=== PATIENT | male | born 1980 | race Caucasian/White ===

== ENCOUNTER 2019-05-27 11:43 | Emergency (ER) | payer BC ==
[2019-05-27] MEDS ORDERED: Sodium Chloride 0.9% 10 ML Syringe FLUSH PRN (11:59)
[2019-05-27] MEDS ORDERED: Sodium Chloride 0.9% 1,000 ML IV SCH (12:00)
--- NOTE | 2019-05-27 12:09 | EDM.PDOC ---
ED HPI GENERAL MEDICAL PROBLEM - General Chief Complaint: General Stated Complaint: Dizziness, nausea Time Seen by Provider: 05/27/19 11:50 - History of Present Illness INITIAL COMMENTS - FREE TEXT/NARRATIVE: 23 patient is a 38-year-old gentleman who works at [employer] will simply states that he was at work became warm hot felt fatigued and dizzy and nauseous patient was brought in for evaluation patient also has history of insulin-dependent dependent diabetes has not been checking his blood sugars but has continue using insulin. 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) Associated Symptoms: Reports: Diaphoresis, Nausea/Vomiting, Weakness Left Foot Pain Score (Numeric/FACES): 4 - Related Data Allergies Allergy/AdvReac Type Severity Reaction Status Date / Time bupropion [From Wellbutrin] Allergy Mild Other Verified 05/27/19 13:12 ibuprofen Allergy Nausea Verified 05/27/19 13:12 methylphenidate Allergy Disorientat Verified 05/27/19 13:12 [From Ritalin] ion Home Meds: Home Meds atorvaSTATin [Lipitor] 10 mg PO DAILY 08/07/18 [History] glipiZIDE [Glipizide Xl] 1 tab PO BEDTIME 08/07/18 [History] glipiZIDE [Glipizide Xl] 2 tab PO DAILY 08/07/18 [History] Acetaminophen [Acetaminophen Extra Strength] 1,000 mg PO Q4HR 05/27/19 [History] Acetaminophen with Codeine [Tylenol with Codeine #3 Tablet] 1 tab PO BID PRN [History] Cholecalciferol (Vitamin D3) [Vitamin D] 50,000 units PO ASDIRECTED 05/27/19 [ History] Gabapentin [Neurontin] 300 mg PO BID 05/27/19 [History] Insulin Glarg,Human.Rec.Analog [Lantus] 15 units SUBCUT BEDTIME 05/27/19 [ History] Insulin Lispro [Humalog] See Protocol 05/27/19 [History] Lisinopril 20 mg PO DAILY 05/27/19 [History] SitaGLIPtin [Januvia] 100 mg PO DAILY 05/27/19 [History] SitaGLIPtin [Januvia] 100 mg PO DAILY 05/27/19 [History] metFORMIN [Glucophage XR] 1,000 mg PO BID 05/27/19 [History] traMADol HCl [Tramadol HCl] 50 mg PO BID 05/27/19 [History] ED ROS GENERAL - Review of Systems Review Of Systems: See Below Constitutional: Reports: Weakness, Diaphoresis HEENT: Reports: No Symptoms, Vertigo, Other (Initially felt dizzy and sat down states that he almost fell from the chair) Respiratory: Reports: No Symptoms Endocrine: Reports: Other (History of diabetes) GI/Abdominal: Reports: Nausea : Reports: No Symptoms Musculoskeletal: Reports: Other (Usually has left foot pain) Skin: Reports: No Symptoms Neurological: Reports: No Symptoms, Other (Neuropathy) ED EXAM, GENERAL - Physical Exam Exam: See Below Exam Limited By: No Limitations General Appearance: Alert, WD/WN, No Apparent Distress Nose: Normal Inspection, Normal Mucosa, No Blood Throat/Mouth: Normal Inspection, Normal Lips, Normal Teeth, Normal Gums, Normal Oropharynx, Normal Voice, No Airway Compromise Neck: Normal Inspection, Supple, Non-Tender, Full Range of Motion Respiratory/Chest: No Respiratory Distress, Lungs Clear, Normal Breath Sounds, No Accessory Muscle Use, Chest Non-Tender Cardiovascular: Normal Peripheral Pulses, Regular Rate, Rhythm, No Edema, No Gallop, No JVD, No Murmur, No Rub GI/Abdominal: Normal Bowel Sounds, Soft, Tender (Male) Exam: Deferred Rectal (Males) Exam: Deferred Extremities: No Pedal Edema, Pedal Edema, Other (Left great toe amputation with first metatarsal amputation partial also patient had fifth metatarsal partial removal secondary to osteomyelitis) Neurological: Alert, Oriented, CN II-XII Intact, Normal Cognition Course - Vital Signs Last Recorded V/S: Last Vital Signs Temp 98.1 F 05/27/19 11:59 Pulse 77 05/27/19 11:59 Resp 16 05/27/19 11:59 BP 108/77 05/27/19 11:59 Pulse Ox 97 05/27/19 11:59 - Orders/Labs/Meds Orders: Active Orders 24 hr Category Date Time Status CBC WITH AUTO DIFF [HEME] Stat Lab 05/27/19 11:55 Ordered COMPREHENSIVE METABOLIC PN,CMP [CHEM] Stat Lab 05/27/19 11:58 Ordered GLYCOSYLATED HEMOGLOBIN (HA1C) [REF] Stat Lab 05/27/19 11:57 Ordered Sodium Chloride 0.9% [Normal Saline] 1,000 ml Med 05/27/19 12:00 Ordered IV ASDIRECTED Sodium Chloride 0.9% [Saline Flush] Med 05/27/19 11:59 Ordered 10 ml FLUSH ASDIRECTED PRN Saline Lock Insert [OM.PC] Stat Oth 05/27/19 11:59 Ordered Medication Orders Sodium Chloride (Normal Saline) 1,000 mls @ 999 mls/hr IV ASDIRECTED CARLIE Sodium Chloride (Saline Flush) 10 ml FLUSH ASDIRECTED PRN PRN Reason: Keep Vein Open Meds: Medications Generic Name Dose Route Start Last Admin Trade Name Freq PRN Reason Stop Dose Admin Sodium Chloride 1,000 mls @ 999 mls/hr 05/27/19 12:00 Normal Saline IV ASDIRECTED CARLIE Sodium Chloride 10 ml 05/27/19 11:59 Saline Flush FLUSH ASDIRECTED PRN Keep Vein Open Departure - Departure Time of Disposition: 13:47 Disposition: Home, Self-Care 01 Condition: Fair Clinical Impression: Dehydration determined by examination, Hyperkalemia, Nausea, Hyperglycemia - Discharge Information *PRESCRIPTION DRUG MONITORING PROGRAM REVIEWED*: No *COPY OF PRESCRIPTION DRUG MONITORING REPORT IN PATIENT PHILIPPE: No Instructions: Nausea, Adult, Dehydration, Adult, [id number] Care Plan Goals: Patient will be sent home he is to start oral hydration with Gatorade sugar- free water flavored water which should have his potassium checked again in 3 days he could do this in the clinic is to stay home tomorrow may return to work in 2 days if feeling well he can return to the ER if any questions follow-up with primary - My Orders Last 24 Hours: My Active Orders 05/27/19 11:55 CBC WITH AUTO DIFF [HEME] Stat 05/27/19 11:57 GLYCOSYLATED HEMOGLOBIN (HA1C) [REF] Stat 05/27/19 11:58 COMPREHENSIVE METABOLIC PN,CMP [CHEM] Stat 05/27/19 11:59 Sodium Chloride 0.9% [Saline Flush] 10 ml FLUSH ASDIRECTED PRN Saline Lock Insert [OM.PC] Stat 05/27/19 12:00 Sodium Chloride 0.9% [Normal Saline] 1,000 ml IV ASDIRECTED - Assessment/Plan Last 24 Hours: My Active Orders 05/27/19 11:55 CBC WITH AUTO DIFF [HEME] Stat 05/27/19 11:57 GLYCOSYLATED HEMOGLOBIN (HA1C) [REF] Stat 05/27/19 11:58 COMPREHENSIVE METABOLIC PN,CMP [CHEM] Stat 05/27/19 11:59 Sodium Chloride 0.9% [Saline Flush] 10 ml FLUSH ASDIRECTED PRN Saline Lock Insert [OM.PC] Stat 05/27/19 12:00 Sodium Chloride 0.9% [Normal Saline] 1,000 ml IV ASDIRECTED
[2019-05-27 12:26] LABS: HEMOGLOBIN A1C 7.6 % (4.3-5.7)
[2019-05-27] MEDS ORDERED: Promethazine 12.5 MG in Sodium Chloride 0.9% 100 ML IV ONE ×2 (12:31→12:33)
[2019-05-27] MEDS ORDERED: Ondansetron 4 MG/2 ML SDV IVPUSH ONE (12:38)
[2019-05-27] MEDS ORDERED: Meclizine 25 MG Tab PO ONE (13:12)
== END 2019-05-27 14:10 | disposition home or self-care (01) ==
LOC: LL.ED 11:43
DX: E86.0 Dehydration (principal); E87.5 Hyperkalemia; R11.0 Nausea; R73.9 Hyperglycemia, unspecified
CPT/HCPCS: 36415; 80053; 83036; 85025; 96361; 96374; 99284; A9270; J2405; J7030

== ENCOUNTER 2021-10-25 02:04 | Emergency (ER) | payer MEDICAID ==
[2021-10-25] MEDS ORDERED: Sodium Chloride 0.9% 1,000 ML IV ONE (02:36)
[2021-10-25] MEDS ORDERED: Piperacillin/Tazobactam 4.5 GM in Sodium Chloride 0.9% 100 ML IV ONE (03:00)
--- NOTE | 2021-10-25 03:02 | EDM.PDOC ---
ED HPI GENERAL MEDICAL PROBLEM - General Chief Complaint: General Stated Complaint: foot infection Time Seen by Provider: 10/25/21 02:25 Source of Information: Reports: Patient History Limitations: Reports: No Limitations - History of Present Illness INITIAL COMMENTS - FREE TEXT/NARRATIVE: Patient is employed by [email or web address] and is brought in [facility] for left foot pain with concern for " blood poisoning". Patient is an insulin dependent diabetic, has had several surgeries with all toes amputated on the left foot and states he has been doctoring for 3 weeks for a new foot infection on the left foot. He states he bought new boots for work and they rubbed his left foot wrong creating blisters on the left foot laterally and on the dorsal area. He was seen by podiatry, blisters were debrided and he was started on doxycycline. He complained of increased drainage from the lateral wound so was seen at podiatry on 10/10/2021 and was changed to clindamycin three times a day. 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 He states his blood sugars are running a little " high" 250-300 over the last day and has had shooting pains from his heel up his leg. This concerned him for " blood poisoning" and the pain became severe at work so asked to be brought in for evaluation. Not putting anything topically on it. never had an xrays of this. Has increased his novolog by 1-2 units with meals over the last day and still takes lantus in the evening but did not take it today. Did feel chilled, took tylenol in the last four hours. No streaking up the leg. 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 Left Foot Pain Score (Numeric/FACES): 10 - Related Data Allergies Allergy/AdvReac Type Severity Reaction Status Date / Time bupropion [From Wellbutrin] Allergy Mild Other Verified 10/25/21 02:10 ibuprofen Allergy Nausea Verified 10/25/21 02:10 methylphenidate Allergy Disorientat Verified 10/25/21 02:10 [From Ritalin] ion Home Meds: Home Meds atorvaSTATin [Lipitor] 10 mg PO DAILY 08/07/18 [History] Acetaminophen [Acetaminophen Extra Strength] 1,000 mg PO Q4HR 05/27/19 [History] Gabapentin [Neurontin] 300 mg PO BID 05/27/19 [History] Insulin Glarg,Human.Rec.Analog [Lantus] 15 units SUBCUT BEDTIME 05/27/19 [History] metFORMIN [Glucophage XR] 1,000 mg PO BID 05/27/19 [History] Clindamycin HCl 300 mg PO TID 10/25/21 [History] Insulin Aspart [Novolog Flexpen] See Protocol SQ TID 10/25/21 [History] Omeprazole 20 mg PO DAILY 10/25/21 [History] Past Medical History HEENT History: Reports: Impaired Vision Cardiovascular History: Reports: Hypertension Respiratory History: Reports: Bronchitis, Recurrent Musculoskeletal History: Reports: Amputation Other Musculoskeletal History: left great toe Neurological History: Reports: Migraines Psychiatric History: Reports: ADD, ADHD, Bipolar Other Psychiatric History: ADD,ADHS, BIPOLAR DX at 6 years of age quit medications at 22 years of age Endocrine/Metabolic History: Reports: Diabetes, Type II - Past Surgical History Musculoskeletal Surgical History: Reports: Amputation (left foot all toes, multiple surgeries) Social & Family History - Family History Family Medical History: Unobtainable - Caffeine Use Caffeine Use: Reports: Energy Drinks, Soda Other Caffeine Use: soda-2 (2liters). energy drinks-2 - Recreational Drug Use Recreational Drug Use: No Drug Use in Last 12 Months: No ED ROS GENERAL - Review of Systems Review Of Systems: See Below Constitutional: Reports: Chills. Denies: Weakness, Fatigue HEENT: Denies: Rhinitis, Throat Pain, Throat Swelling Respiratory: Reports: No Symptoms. Denies: Shortness of Breath, Cough Cardiovascular: Reports: No Symptoms. Denies: Chest Pain, Dyspnea on Exertion GI/Abdominal: Denies: Abdominal Pain, Diarrhea, Nausea, Vomiting Musculoskeletal: Reports: Foot Pain (left when walking with radiation to the upper leg) Skin: Reports: Wound, Other (open sores on the dorsum of the left foot and latearl left foot) Neurological: Reports: No Symptoms ED EXAM, GENERAL - Physical Exam Exam: See Below Exam Limited By: No Limitations General Appearance: Alert, WD/WN, No Apparent Distress Eye Exam: Bilateral Eye: EOMI, Normal Inspection, PERRL Ears: Hearing Grossly Normal Nose: Normal Inspection Throat/Mouth: Normal Inspection, Normal Lips, Normal Oropharynx, Normal Voice, Other (mild dry mucous membranes) Neck: Normal Inspection Respiratory/Chest: No Respiratory Distress, Lungs Clear, Normal Breath Sounds, No Accessory Muscle Use, Chest Non-Tender Cardiovascular: Normal Peripheral Pulses, No Edema (mild dependent brawny edema bilateral lower legs to mid menjivar), No Murmur, Tachycardia GI/Abdominal: Normal Bowel Sounds. No: Rigid, Rebound Extremities: Other (difficult to palpate dorsalis pedis and posterior tibialis pulse, foot is not cold or pale. ) Neurological: Alert, Oriented Skin Exam: Wound/Incision (near full thickness3 cm diameter area on the dorsum opf the foot with dry wound. full thickness with concern of bony involvement >8 cm lesion left lateral foot with granualation tissue, serous drainage large surrounding erythema, peeling skin. ) Lymphatic: Other (no lymphangetic streaking,) Course - Vital Signs Last Recorded V/S: Last Vital Signs Temp 37.9 C 10/25/21 02:05 Pulse 112 H 10/25/21 02:05 Resp 20 10/25/21 02:05 BP 159/137 H 10/25/21 02:05 Pulse Ox 98 10/25/21 02:05 - Orders/Labs/Meds Orders: Active Orders 24 hr Category Date Time Status Foot Comp Min 3V Lt [CR] Stat Exams 10/25/21 02:39 Ordered CULTURE BLOOD [BC] Stat Lab 10/25/21 02:17 Ordered CULTURE BLOOD [BC] Stat Lab 10/25/21 02:17 Ordered Blood Culture x2 Reflex Set [OM.PC] Stat Oth 10/25/21 02:16 Ordered Labs: Laboratory Tests 10/25/21 10/25/21 10/25/21 Range/Units 02:28 02:28 02:28 WBC 14.0 H (4.0-10.2) K/uL RBC 4.08 L (4.33-5.41) M/uL Hgb 11.9 L D (13.1-16.8) g/dL Hct 34.4 L (39.0-49.0) % MCV 84.3 (84.0-98.0) fL MCH 29.2 (28.2-33.3) pg MCHC 34.6 (31.7-36.0) g/dL RDW 12.0 (11.2-14.1) % Plt Count 396 H D (150-350) K/uL Neut % (Auto) 83.8 H (45.0-80.0) % Lymph % (Auto) 7.8 L (10.0-50.0) % [place] % (Auto) 7.0 (2.0-14.0) % Eos % (Auto) 1.2 (0.0-5.0) % Baso % (Auto) 0.2 (0.0-2.0) % Neut # (Auto) 11.77 H (1.40-7.00) K/uL Lymph # (Auto) 1.09 (0.50-3.50) K/uL [place] # (Auto) 0.98 (0.00-1.00) K/uL Eos # (Auto) 0.17 (0.00-0.50) K/uL Baso # (Auto) 0.03 (0.00-0.20) K/uL ESR (0-15) mm/hr Sodium 131 L (136-145) mmol/L Potassium 3.6 D (3.5-5.1) mmol/L Chloride 97 L (98-107) mmol/L Carbon Dioxide 19.2 L (21.0-32.0) mmol/L Anion Gap 18.4 H (7-15) meq/L BUN 11 (7-18) mg/dL Creatinine 1.13 (0.51-1.17) mg/dL Est Cr Clr Drug Dosing 105.62 mL/min Estimated GFR (MDRD) > 60 mL/min Glucose 378 H (70-99) mg/dL Lactic Acid 0.7 (0.4-2.0) mmol/L Calcium 8.7 (8.5-10.1) mg/dL Total Bilirubin 0.7 (0.2-1.0) mg/dL AST 16 (15-37) U/L ALT 22 (12-78) U/L Alkaline Phosphatase 196 H (46-116) IU/L C-Reactive Protein 33.6 H (<=0.9) mg/dL Total Protein 6.3 L (6.4-8.2) g/dL Albumin 1.8 L (3.4-5.0) g/dL 10/25/21 Range/Units 02:28 WBC (4.0-10.2) K/uL RBC (4.33-5.41) M/uL Hgb (13.1-16.8) g/dL Hct (39.0-49.0) % MCV (84.0-98.0) fL MCH (28.2-33.3) pg MCHC (31.7-36.0) g/dL RDW (11.2-14.1) % Plt Count (150-350) K/uL Neut % (Auto) (45.0-80.0) % Lymph % (Auto) (10.0-50.0) % [place] % (Auto) (2.0-14.0) % Eos % (Auto) (0.0-5.0) % Baso % (Auto) (0.0-2.0) % Neut # (Auto) (1.40-7.00) K/uL Lymph # (Auto) (0.50-3.50) K/uL [place] # (Auto) (0.00-1.00) K/uL Eos # (Auto) (0.00-0.50) K/uL Baso # (Auto) (0.00-0.20) K/uL ESR 115 H (0-15) mm/hr Sodium (136-145) mmol/L Potassium (3.5-5.1) mmol/L Chloride (98-107) mmol/L Carbon Dioxide (21.0-32.0) mmol/L Anion Gap (7-15) meq/L BUN (7-18) mg/dL Creatinine (0.51-1.17) mg/dL Est Cr Clr Drug Dosing mL/min Estimated GFR (MDRD) mL/min Glucose (70-99) mg/dL Lactic Acid (0.4-2.0) mmol/L Calcium (8.5-10.1) mg/dL Total Bilirubin (0.2-1.0) mg/dL AST (15-37) U/L ALT (12-78) U/L Alkaline Phosphatase (46-116) IU/L C-Reactive Protein (<=0.9) mg/dL Total Protein (6.4-8.2) g/dL Albumin (3.4-5.0) g/dL Meds: Medications Discontinued Medications Generic Name Dose Route Start Last Admin Trade Name Radhika PRN Reason Stop Dose Admin Sodium Chloride 1,000 mls @ 999 mls/hr 10/25/21 02:36 10/25/21 02:36 Normal Saline IV 10/25/21 03:36 999 mls/hr .BOLUS ONE Administration Piperacillin Sod/Tazobactam 100 mls @ 200 mls/hr 10/25/21 03:00 10/25/21 03:03 Sod 4.5 gm/ Sodium Chloride IV 10/25/21 03:29 200 mls/hr ONETIME ONE Administration - Radiology Interpretation Free Text/Narrative:: discussed left foot x-ray with radiology, amputations are stable, possible increase in bone destruction lateral foot. No gas noted. Possible change with chronic osteomyelitis. See official report - Re-Assessments/Exams Free Text/Narrative Re-Assessment/Exam: Check labs, give IV fluids due to hyperglycemia history and iv zosyn 4.5 grams. check x-ray WBC elevated, normal lactic, elevated crp and sed rate consistent with chronic infection, not septic. xray with possible worsening chronic changes. Patient was sleping soundly and arousable to voice. Discussed need to follow up with podiatry in one day, possibly get mri and discuss surgical intervention for this nonhealing ulcer. Discussed need to take his Lantus daily and to have tighter blood glucose control with sliding scale in order to help with healing. Patient voices understanding. Asks for pain medication to " finish his shift" at [employer]. Advised that he is not allowed to work on narcotics. Has no pain unless he walks on it. Offered crutches, declines. Will have him continue his doxycyline, give him tonight and tomorrow off and have further restrictions, medications, orders for this ulcer from podiatry Departure - Departure Time of Disposition: 03:36 Disposition: Home, Self-Care 01 Condition: Fair Clinical Impression: Hyperglycemia due to type 1 diabetes mellitus, Non compliance w medication regimen, Diabetic foot ulcer, Cellulitis - Discharge Information *PRESCRIPTION DRUG MONITORING PROGRAM REVIEWED*: Not Applicable *COPY OF PRESCRIPTION DRUG MONITORING REPORT IN PATIENT PHILIPPE: Not Applicable Instructions: Osteomyelitis, Adult, Cellulitis, Adult, Hyperglycemia, [id number] Referrals: Mathew Aleman PA [Primary Care Provider] - Forms: ED Department Discharge, ED Return to Work/School Form Additional Instructions: Testing today revealed a WBC of 14, sed rate of 115, crp of 33. Your blood glucose is high at 348. You have increasing bony destruction of the left foot consistent with probable chronic osteomyelitis. Keep your appointment tomorrow with podiatry, MRI and probable surgery are recommended for this nonhealing chronic ulcer. It is important that you take your diabetes medications ( Lantus) every day and that you have tighter control of your blood glucose sliding scale in order to have wound healing and good surgical outcomes. You were given a dose of zosyn in the ED. Continue your clindamycin three times a day. Keep a wound dressing on and change daily or when it becomes soaked Sepsis Event Note (ED) - Evaluation Sepsis Screening Result: No Definite Risk - Focused Exam Vital Signs: Vital Signs Temp Pulse Resp BP Pulse Ox 10/25/21 02:05 37.9 C 112 H 20 159/137 H 98 - My Orders Last 24 Hours: My Active Orders 10/25/21 02:16 Blood Culture x2 Reflex Set [OM.PC] Stat 10/25/21 02:17 CULTURE BLOOD [BC] Stat CULTURE BLOOD [BC] Stat 10/25/21 02:39 Foot Comp Min 3V Lt [CR] Stat - Assessment/Plan Last 24 Hours: My Active Orders 10/25/21 02:16 Blood Culture x2 Reflex Set [OM.PC] Stat 10/25/21 02:17 CULTURE BLOOD [BC] Stat CULTURE BLOOD [BC] Stat 10/25/21 02:39 Foot Comp Min 3V Lt [CR] Stat
[2021-10-25 03:11] LABS: CHLORIDE,CL 97 mmol/L (98-107); SODIUM,NA 131 mmol/L (136-145)
[2021-10-25 03:12] LABS: ANION GAP 18.4 meq/L (7-15)
== END 2021-10-25 04:05 | disposition home or self-care (01) ==
LOC: LL.ED 02:04
DX: E10.621 Type 1 diabetes mellitus with foot ulcer (principal); L97.429 Non-pressure chronic ulcer of left heel and midfoot with unspecified severity; L03.116 Cellulitis of left lower limb; I10 Essential (primary) hypertension; Z88.8 Allergy status to other drugs, medicaments and biological substances; Z79.899 Other long term (current) drug therapy; Z91.19 Patient's noncompliance with other medical treatment and regimen
CPT/HCPCS: 36415; 73630-LT; 80053; 83605; 85025; 85652; 86140; 87040; 96365; 99283-25; 99284; J2543; J7030

== ENCOUNTER 2023-07-14 17:25 | Emergency (ER) | payer MEDICAID ==
[2023-07-14] MEDS ORDERED: Sodium Chloride 0.9% 1,000 ML IV ONE (18:10)
[2023-07-14 18:17] LABS: BASOPHILS ABSOLUTE AUTO 0.05 K/uL (0.00-0.20); BASOPHILS PERCENT AUTO 0.4 % (0.0-2.0); EOSINOPHILS ABSOLUTE AUTO 0.18 K/uL (0.00-0.50); EOSINOPHILS PERCENT AUTO 1.3 % (0.0-5.0); HEMATOCRIT 40.5 % (39.0-49.0); HEMOGLOBIN 14.4 g/dL (13.1-16.8); LYMPHOCYTES ABSOLUTE AUTO 1.95 K/uL (0.50-3.50); LYMPHOCYTES PERCENT AUTO 14.1 % (10.0-50.0); MEAN CORPUSCULAR HEMOGLOBIN 29.6 pg (28.2-33.3); MEAN CORPUSCULAR HGB CONC 35.6 g/dL (31.7-36.0); MEAN CORPUSCULAR VOLUME 83.3 fL (84.0-98.0); MONOCYTES ABSOLUTE AUTO 1.05 K/uL (0.00-1.00); MONOCYTES PERCENT AUTO 7.6 % (2.0-14.0); NEUTROPHILS ABSOLUTE AUTO 10.62 K/uL (1.40-7.00); NEUTROPHILS PERCENT AUTO 76.6 % (45.0-80.0); PLATELET COUNT,PLT 330 K/uL (150-350); RED BLOOD CELL COUNT 4.86 M/uL (4.33-5.41); RED CELL DISTRIBUTION WIDTH 12.6 % (11.2-14.1); WHITE BLOOD CELL COUNT,WBC 13.9 K/uL (4.0-10.2)
[2023-07-14] MEDS ORDERED: cefTRIAXone 2 GM in Sodium Chloride 0.9% 100 ML IV ONE (18:29)
[2023-07-14 18:33] LABS: INR 0.9; PROTHROMBIN TIME 9.3 SEC (9.0-11.1)
[2023-07-14 18:40] LABS: ALANINE AMINOTRANSFERASE,ALT 16 U/L (12-78); ALBUMIN 2.7 g/dL (3.4-5.0); ALKALINE PHOSPHATASE 125 IU/L (46-116); ASPARTATE AMNIOTRANSFERASE,AST 13 U/L (15-37); BILIRUBIN TOTAL 0.5 mg/dL (0.2-1.0); BLOOD UREA NITROGEN,BUN 22 mg/dL (7-18); CALCIUM 8.3 mg/dL (8.5-10.1); CARBON DIOXIDE,CO2 22.4 mmol/L (21.0-32.0); CHLORIDE,CL 95 mmol/L (98-107); CREATININE 1.57 mg/dL (0.51-1.17); GLUCOSE RANDOM 380 mg/dL (70-99); POTASSIUM,K 3.9 mmol/L (3.5-5.1); PROTEIN TOTAL,TP 6.1 g/dL (6.4-8.2); SODIUM,NA 128 mmol/L (136-145)
[2023-07-14 18:41] LABS: ANION GAP 14.5 meq/L (7-15); ESTIMATED GFR 56 mL/min (>=60)
[2023-07-14 18:42] LABS: LACTIC ACID 2.4 mmol/L (0.4-2.0)
[2023-07-14] MEDS ORDERED: Glucagon,Human Recombinant 1 MG Vial IM PRN ×2 (19:05→19:21)
[2023-07-14] MEDS ORDERED: 50% Dextrose in Water 50 ML Syringe IVPUSH PRN ×2 (19:05→19:21)
[2023-07-14] MEDS ORDERED: Insulin Lispro 100 Units/ML 3 ML Vial SUBCUT ONE (19:21)
[2023-07-14] MEDS ORDERED: Carvedilol 12.5 MG Tab PO ONE (19:36)
[2023-07-14 19:41] LABS: AMPHETAMINES SCREEN, URINE NEGATIVE (NEGATIVE); BARBITURATE SCREEN,URINE NEGATIVE (NEGATIVE); BENZODIAZEPINES SCREEN,URINE NEGATIVE (NEGATIVE); COCAINE METABOLITES,URINE NEGATIVE (NEGATIVE); EDDP,URINE SCREEN NEGATIVE (NEGATIVE); METHAMPHETAMINES SCREEN, URINE NEGATIVE (NEGATIVE); TCA SCREEN,URINE NEGATIVE (NEGATIVE); THC SCREEN,URINE 50 NG/ML NEGATIVE (NEGATIVE)
[2023-07-14 19:42] LABS: BUPRENORPHINE SCREEN,URINE NEGATIVE (NEGATIVE); OXYCODONE SCREEN,URINE NEGATIVE (NEGATIVE)
[2023-07-14 19:44] LABS: APPEARANCE,URINE CLEAR; BILIRUBIN,URINE NEGATIVE (NEGATIVE); COLOR,URINE YELLOW; GLUCOSE,URINE 500 mg/dL (NEGATIVE); KETONES,URINE NEGATIVE (NEGATIVE); LEUKOCYTE ESTERASE,URINE NEGATIVE (NEGATIVE); NITRITE,URINE NEGATIVE (NEGATIVE); OCCULT BLOOD,URINE TRACE-INTACT (NEGATIVE); PH,URINE 5.5 (5.0-9.0); PROTEIN,URINE >=300 mg/dL (NEGATIVE); UROBILINOGEN,URINE 0.2 E.U./dL (0.2-1.0)
[2023-07-14 19:47] LABS: BACTERIA,URINE NOT SEEN /HPF (NONE TO FEW); EPITHELIAL CELLS,URINE NOT SEEN /LPF; MUCUS,URINE RARE /LPF (NEGATIVE); RBC,URINE 0-5 /HPF; WBC,URINE NOT SEEN /HPF
[2023-07-14] MEDS ORDERED: Take Home: Cefuroxime 500 MG Tab, 6 Tab Pack PO ONE (21:34)
[2023-07-15] MEDS ORDERED: Insulin Lispro 100 Units/ML 3 ML Vial SUBCUT ONE (19:05)
== END 2023-07-14 21:50 | disposition left against medical advice (07) ==
LOC: LL.ED 17:25 → SUPCPDRO 17:25 → LL.ED 21:50
DX: L08.89 Other specified local infections of the skin and subcutaneous tissue (principal); E11.9 Type 2 diabetes mellitus without complications; R00.0 Tachycardia, unspecified; I10 Essential (primary) hypertension; F17.210 Nicotine dependence, cigarettes, uncomplicated; Z79.84 Long term (current) use of oral hypoglycemic drugs; Z88.8 Allergy status to other drugs, medicaments and biological substances; Z79.899 Other long term (current) drug therapy
CPT/HCPCS: 36415; 80053; 80305-QW; 81001; 82947; 83605; 84484; 85025; 85610; 87070; 93005; 93010; 96361; 96365; 99283-25; 99284; A9270-GY; J0696; J1815-GY; J3490; J7030

== ENCOUNTER 2025-06-07 13:56 | Emergency (ER) | payer BC ==
[2025-06-07 14:05] VITALS: BP 142/97; PULSE 88
[2025-06-07] MEDS: Bacitracin Oint 1 GM U/D Packet TOP ONE (14:44)
[2025-06-07] MEDS: Bacitracin Oint 1 GM U/D Packet ONE (16:17)
== END 2025-06-07 15:05 | disposition home or self-care (01) ==
LOC: LL.ED 13:56
DX: S81.012A Laceration without foreign body, left knee, initial encounter (principal); I10 Essential (primary) hypertension; E11.9 Type 2 diabetes mellitus without complications; Z88.6 Allergy status to analgesic agent; Z88.8 Allergy status to other drugs, medicaments and biological substances; Z79.899 Other long term (current) drug therapy; Z79.84 Long term (current) use of oral hypoglycemic drugs; Z79.4 Long term (current) use of insulin; W22.8XXA Striking against or struck by other objects, initial encounter; Y93.89 Activity, other specified
CPT/HCPCS: 12001; 99282; J2003

== ENCOUNTER 2025-07-07 16:11 | Emergency (ER) | payer BC | END 2025-07-07 17:31 | disposition home or self-care (01) | LOC: LL.ED 16:11 | DX: S81.012A Laceration without foreign body, left knee, initial encounter (principal); I10 Essential (primary) hypertension; Z88.8 Allergy status to other drugs, medicaments and biological substances; Z79.4 Long term (current) use of insulin; Z79.899 Other long term (current) drug therapy; E11.9 Type 2 diabetes mellitus without complications; W05.2XXA Fall from non-moving motorized mobility scooter, initial encounter | CPT/HCPCS: 12001; 99282; J2003 ==